=== PATIENT | female | born 1950 | race Caucasian/White ===

== ENCOUNTER → 2024-02-16 | Outpatient (CLI) | payer MEDICARE, SELFPAY ==
--- NOTE | 2024-02-16 | PATH_ITS ---
Note [facility] Accession Number: [id number] TESTS RESULT FLAG UNITS REF RANGE LAB Clinician Provided Cytology Information No. of containers..01 Other (Miscellaneous) No. of containers..02 Previously Prepared Cytology Slide Source: LEFT THYROID NODULE DIAGNOSIS: LEFT THYROID NODULE, FINE NEEDLE ASPIRATION. ADEQUATE FOR EVALUATION. FOLLICULAR GROUPS ARE PRESENT. FAVOR BENIGN FOLLICULAR (GOITEROUS) NODULE (BETHESDA CATEGORY II), SEE COMMENT. COMMENT: MICROSCOPIC EXAMINATION REVEALS A MILDLY CELLULAR ASPIRATE, COMPOSED OF COLLOID, FOLLICULAR GROUPS WITH REACTIVE/REPARATIVE CHANGES AND NUMEROUS BACKGROUND MACROPHAGES (AND MULTINUCLEATED CELLS) SUGGESTIVE OF DEGENERATIVE/CYSTIC OR PREVIOUS BIOPSY CHANGES. THESE FINDINGS FAVOR A BENIGN FOLLICULAR (GOITEROUS) NODULE. CORRELATION WITH CLINICAL AND RADIOGRAPHIC FINDINGS IS RECOMMENDED TO ENSURE THAT THE LESION HAS BEEN ADEQUATELY SAMPLED. ACCORDING TO THE [place]DA REPORTING SYSTEM FOR THYROID CYTOPATHOLOGY, THE RISK OF MALIGNANCY IN THE CATEGORY BENIGN-CATEGORY II IS 0-3%; THEREFORE RECOMMEND CONTINUED ULTRASOUND SURVEILLANCE WITH REPEAT FNA IF THE NODULE SIGNIFICANTLY INCREASES IN SIZE. Pathologist ICD10: 01 E04.2 Signed out by: David Leija MD, Pathologist NPI- [id number] Performed by: David Myers, Cement Finisher ([facility]) Gross description: 30 CC, COLORLESS, CLEAR RECIEVED: IN CYTOLYT WITH 6 ALCOHOL FIXED AND 6 QUICK STAINED SLIDES ALSO 1 RNA VIAL WILL ON 06-06-2024.VO /VDU 02/19/2024 [facility] Local FLAG LEGEND: L-Low Normal,H-High Normal,LL-Alert Low,HH-Alert High <-Panic Low,>-Panic High,A-Abnormal,AA-Critical Abnormal Performed at: 01 [address] [address], [place] [address] Vladimir Robbins MD, Performed at: [address] [address], [place], [place] [id number] MD Vladimir Robbins MD Phone: [phone]
--- NOTE | 2024-02-16 | DI.US.S_ITS ---
PROCEDURE: US FINE NEEDLE ASPIRATION INDICATIONS: Suspicious thyroid nodules bilaterally TECHNIQUE: The indications, alternatives, benefits, risks, and complications of the procedure were explained to the patient. Written informed consent was obtained and placed in the chart. The area of interest was examined sonographically and a site was chosen for ultrasound guided percutaneous sampling. The skin was prepared and draped in the usual fashion, and anesthetized with 1% lidocaine infiltrated from the skin down to the lesion. Multiple passes were then performed, with contents emptied into an appropriate pathology specimen container. A bandage was applied to the area of access at completion of the study. COMPARISON: Outside Facility, US, US THYROID, 01/19/2024, 16:18. CT angio head and neck dated 08/09/2021, ultrasound thyroid 08/19/2023. FINDINGS: Location(s) of lesion(s) sampled: Bilateral thyroid nodules as seen on prior ultrasound; measuring approximately 1.9 centimeter in largest dimension on the right and measuring approximately 2.6 centimeter in largest dimension on the left. [place]: 25 gauge hypodermic needles. Number of passes: 6 passes bilaterally Medications: 1% lidocaine for local anaesthesia. Complications: None. IMPRESSION: Successful ultrasound-guided BILATERAL thyroid fine needle aspiration, with cytology results pending. Approved by: Francis William M.D. on 02/26/2024 at 10:40
--- NOTE | 2024-02-16 | PATH_ITS ---
Note [facility] Accession Number: [id number] TESTS RESULT FLAG UNITS REF RANGE LAB Clinician Provided Cytology Information No. of containers..01 Other (Miscellaneous) No. of containers..02 Previously Prepared Cytology Slide Source: RIGHT THYROID NODULE DIAGNOSIS: RIGHT THYROID NODULE, FINE NEEDLE ASPIRATION. INCONCLUSIVE. BETHESDA CATEGORY III. ATYPIA OF UNDETERMINED SIGNIFICANCE (AUS), SEE COMMENT. COMMENT: EXAMINATION OF THE SMEARS REVEALS A CELLULAR ASPIRATE, COMPOSED OF SCANT COLLOID, FEW MACROPHAGES AND BENIGN FOLLICULAR GROUPS WITH FOCAL HURTHLE CELL CHANGES. IN ADDITION, THERE ARE GROUPS WHERE MILD NUCLEAR ENLARGEMENT, OVERLAPPING AND RARE NUCLEAR MEMBRANE IRREGULARITIES ARE NOTED. INTRANUCLEAR PSEUDOINCLUSIONS ARE NOT SEEN. THE RISK OF MALIGNANCY IN THE BETHESDA CATEGORY III IS 5-15%. RE-ASPIRATION IS RECOMMENDED. ADDITIONAL MOLECULAR TESTING WILL BE PERFORMED ON THE SUBMITTED RNA VIAL. Pathologist ICD10: 01 E04.2 Signed out by: Jonny Leija MD, Pathologist NPI- [id number] Performed by: Kale Myers, Account Collector ([facility]) Gross description: 01 30 CC, PINK, CLEAR RECIEVED: IN CYTOLYT WITH 6 ALCOHOL FIXED AND 6 QUICK STAINED SLIDES ALSO 1 RNA VIAL WILL ON 06-06-2024.VO /VDU 02/19/2024 1145 Local FLAG LEGEND: L-Low Normal,H-High Normal,LL-Alert Low,HH-Alert High <-Panic Low,>-Panic High,A-Abnormal,AA-Critical Abnormal Performed at: 01 =Z [facility] [place] [address], [place] [address] Vladimir Robbins MD, Performed at: [address], [place], [place] [id number] MD Vladimir Robbins MD Phone: [phone]
== END ==
PROVIDERS: PCP Student in an Organized Health Care Education/Training Program; Referring Provider Student in an Organized Health Care Education/Training Program; Visit Provider Student in an Organized Health Care Education/Training Program
DX: E04.2 Nontoxic multinodular goiter (principal)
CPT/HCPCS: 10005; 10006

== ENCOUNTER → 2024-03-25 13:42 | Outpatient (CLI) | payer MEDICARE, SELFPAY ==
--- NOTE | 2024-03-25 | DI.US.S_ITS ---
PROCEDURE: US FINE NEEDLE ASPIRATION INDICATIONS: REPEAT FNA / RIGHT THYROID NODULE TECHNIQUE: The indications, alternatives, benefits, risks, and complications of the procedure were explained to the patient. Written informed consent was obtained and placed in the chart. The thyroid region was examined sonographically and a site was chosen for ultrasound guided percutaneous sampling. The skin was prepared and draped in the usual fashion, and anesthetized with 1% lidocaine infiltrated from the skin down to the thyroid gland. Multiple passes were then performed, with contents emptied into an appropriate pathology specimen container. A bandage was applied to the area of access at completion of the study. COMPARISON: Outside Facility, US, US THYROID, 01/19/2024, 16:18. [facility], US, US FINE NEEDLE ASPIRATION, 02/16/2024, 14:34. FINDINGS: Location of lesion sampled: Right thyroid [place]: 25 gauge hypodermic needles. Number of passes: 9 Medications: 1% lidocaine for local anaesthesia. Complications: None. IMPRESSION: Successful ultrasound-guided thyroid nodule fine needle aspiration, with cytology results pending. Please see chart below for management recommendations based on cytology results. [facility] ReportingRecommendationsNon-diagnostic* Repeat US-guided FNA, with on-site cytology evaluation if possible. * Repeated non-diagnostic nodules without high suspicion US features: close observation vs surgical consult. * Consider surgery if nodule has high suspicion US features, grows >20% in 2 dimensions on followup, or patient has clinical risk factors for malignancy. Benign* If nodule has high suspicion US features: repeat US and FNA within 12 months. * If nodule has low to intermediate suspicion US features: repeat US at 12-24 months. If nodule grows (20% increase in at least 2 dimensions, with minimal increase of 2 mm or >50% change in volume), or development of new suspicious US features, then repeat FNA or continue followup. * If nodule has very low suspicion US features: followup US at >24 months. Atypia of undetermined significance, follicular lesion of undetermined significanceRepeat FNA, molecular testing, followup US, or surgical consult.Follicular neoplasm, suspicious for follicular neoplasmSurgical consult; also consider molecular testing. Suspicious for malignancySurgical consult.MalignantSurgical consult. Approved by: Kyaw Zhu M.D. on 03/25/2024 at 15:38
--- NOTE | 2024-03-25 14:52 | PATH_ITS ---
Note [facility] Accession Number: [id number] TESTS RESULT FLAG UNITS REF RANGE LAB Clinician Provided Cytology Information No. of containers..01 Other (Miscellaneous) No. of containers..06 Previously Prepared Cytology Slide Source: RIGHT THYROID NODULE DIAGNOSIS: RIGHT THYROID NODULE ATYPIA OF UNDETERMINED SIGNIFICANCE. BETHESDA CATEGORY III. ATYPIA OF UNDETERMINED SIGNIFICANCE - OTHER. FOLLICULAR CELL GROUPS WITH ONCOCYTIC FEATURES PRESENT. MOLECULAR STUDIES PENDING; RESULTS WILL BE REPORTED SEPARATELY. Pathologist ICD10: R89.6 Signed out by: Virginia Lal MD, Pathologist NPI- [id number] Performed by: Agapito Agrawal, Weed Cooking Operator ([facility]) Gross description: 30 CC, RED, CLEAR RECIEVED: IN CYTOLYT WITH 7 ALCOHOL FIXED AND 9 QUICK STAINED SLIDES ALSO 1 RNA VIAL WILL ON 06-06-2024.VO /VDU 03/26/2024 0903 Local FLAG LEGEND: L-Low Normal,H-High Normal,LL-Alert Low,HH-Alert High <-Panic Low,>-Panic High,A-Abnormal,AA-Critical Abnormal Performed at: 01 =Z [facility], [place] [address] Vladimir oRbbins MD, Performed at: [address], [place], [place] [id number] MD Vladimir Robbins MD Phone: [phone]
== END ==
PROVIDERS: PCP Student in an Organized Health Care Education/Training Program; Referring Provider Student in an Organized Health Care Education/Training Program; Visit Provider Student in an Organized Health Care Education/Training Program
DX: E04.2 Nontoxic multinodular goiter (principal)
CPT/HCPCS: 10005